=== PATIENT | male | born 1990 | race Caucasian/White ===

== ENCOUNTER 2016-09-27 20:59 | Emergency (ER) | payer OTHER ==
[~2016-09-27] VITALS: Ht 188 cm; Wt 77.1 kg
[2016-09-27 22:03] LABS: CALCIUM 8.3 mg/dL (8.5-10.1); CARBON DIOXIDE 31.4 mmol/L (21-32); CHLORIDE SERUM 103 mmol/L (98-107); CREATININE SERUM 0.6 mg/dL (0.7-1.3); GFR1 > 60 mL/min; GLUCOSE SERUM 164 mg/dL (74-106); POTASSIUM SERUM 3.3 mmol/L (3.5-5.1); SODIUM SERUM 138 mmol/L (136-145)
[2016-09-27 22:08] LABS: ALBUMIN 2.7 g/dL (3.4-5.0); ALKALINE PHOSPHATASE 39 U/L (46-116); ALT/SGPT 57 U/L (16-63); AST/SGOT 24 U/L (15-37); BILIRUBIN TOTAL 0.6 mg/dL (0.20-1.00); TOTAL PROTEIN, SERUM 5.6 g/dL (6.4-8.2)
[2016-09-27 22:11] LABS: CK-MB < 0.5 ng/mL (0-3.6); CREATINE KINASE 25 U/L (39-308)
[2016-09-27 22:42] LABS: PLATELET COUNT 125 x10^3mcL (130-400); RED CELL DISTRIBUTION WIDTH 14.8 % (11.5-14.5)
[2016-09-27 22:51] LABS: UA SPECIFIC GRAVITY 1.015 (1.005-1.035); microscopic required? YES; urine erythrocyte NEGATIVE (NEGATIVE)
[2016-09-27 23:01] VITALS: BP 139/77
[2016-09-27 23:31] LABS: MONOCYTE 4 % (0-7); SEGMENTED NEUTROPHILS 61 % (37-75)
[2016-09-27 23:32] LABS: rbc morphology (normal/abnorm) ABNORMAL (NORMAL)
[2016-09-27 23:33] LABS: PLATELET MORPHOLOGY PLATELETS DECREASED
== END 2016-09-27 23:01 | disposition short-term general hospital (02) ==
LOC: ED 20:59
PROVIDERS: Emergency Medicine
DX: R41.82 Altered mental status, unspecified (principal); C91.00 Acute lymphoblastic leukemia not having achieved remission; D70.9 Neutropenia, unspecified; D64.9 Anemia, unspecified; E87.6 Hypokalemia
CPT/HCPCS: 83880; 85378; J7030; Q0092